=== PATIENT | male | born 1970 | race African-American/Black ===

== ENCOUNTER 2020-06-19 21:12 | Emergency (ER) | payer SELFPAY ==
[~2020-06-19] VITALS: Ht 172.7 cm; Wt 132.1 kg
--- NOTE | 2020-06-19 21:27 | RAD ---
Exam: CT head INDICATION: Slurred speech, vision changes TECHNIQUE: Sequential axial images through the head were obtained without the administration of IV co ntrast. Comparisons: None FINDINGS: No focal parenchymal lesion or hemorrhage is identified. There is no midline shift or sulcal effaceme nt. No acute vascular territory infarction is identified. Lou-white distinction is preserved. The ventricular system is within normal limits without compression hydrocephalus. The basal cisterns are well maintained. The visualized portions of the paranasal sinuses and mastoid air cells are well-pneumatized. No acute fractures. IMPRESSION: No acute intracranial abnormality. Exposure: One or more of the following in the visualized dose reduction techniques were utilized for this examination: 1. Automated exposure control 2. Adjustment of the MA and/or KV according to patient size Use of iterative of reconstructive technique FOR INTERNAL CODING PURPOSES Critical result: Findings discussed with Condra at 06/19/2020 9:23 PM. RESULT CODE: (C) Electronically signed by: Héctor Caruso MD (06/19/2020 9:24 PM) [facility]
[2020-06-19] MEDS ORDERED: IOHEXOL 350 MG/ML 100 ML VIAL. IV ONE (21:45)
[2020-06-19] MEDS ORDERED: CONTRAST GIVEN. MC PRN (22:00)
--- NOTE | 2020-06-19 22:01 | PHYS DOC ---
Adult General Chief Complaint Chief Complaint: NEURO SYMPTOMS/DEFICITS HPI HPI Patient is a 50-year-old male with a past medical history significant for diabetes and hypertension who presents to the emergency department with a chief complaint of blurry vision, and slurred speech. States that he got home from work just after 3 PM and noticed the symptoms began just after getting home. States that it began initially with blurry vision then the right-sided facial droop and slurred speech then right-sided motor weakness. Denies any recent travel, illnesses, fevers, headache, trouble swallowing, chest pain, shortness of breath, abdominal pain, nausea, vomiting, dysuria, diarrhea or hematuria. Denies history of heart attack or stroke. Review of Systems Review of Systems Review of systems otherwise unremarkable except noted in HPI. Current Medications Current Medications Current Medications Medications (Trade) Dose Ordered Sig/Belia Start Time Stop Time Status Last Admin Dose Admin Iohexol (Omnipaque 350 Mg/ml) 100 ml 1X ONCE 06/19/20 21:45 06/19/20 21:46 UNV Allergies Allergies Allergies Coded Allergies Type Severity Reaction Last Updated Verified No Known Drug Allergies 06/19/20 No Physical Exam Physical Exam Constitutional: Well developed, well nourished, no acute distress, non-toxic appearance. [] HENT: Normocephalic, atraumatic, bilateral external ears normal, oropharynx moist, no oral exudates, nose normal. [] Eyes: Patient with bilateral conjunctivitis and chemosis Neck: Normal range of motion, no tenderness, supple, no stridor. [] Cardiovascular:Heart rate regular rhythm, no murmur [] Lungs & Thorax: Bilateral breath sounds clear to auscultation [] Abdomen: Bowel sounds normal, soft, no tenderness, no masses, no pulsatile masses. [] Skin: Warm, dry, no erythema, no rash. [] Back: No tenderness, no CVA tenderness. [] Extremities: No tenderness, no cyanosis, no clubbing, ROM intact, no edema. [] Neurologic: GCS of 15. NIH of 11. Able to move left side without issue. Right-sided facial droop with slurred speech, right upper and lower extremities with weakness 3 out of 5, [id number] and [id number] deficiency on right Psychologic: Affect normal, judgement normal, mood normal. [] Current Patient Data Lab Results Laboratory Tests Test 06/19/20 21:35 Glucose (Fingerstick) 287 mg/dL (70-99) H EKG EKG [] Radiology/Procedures Radiology/Procedures []xam: CT head INDICATION: Slurred speech, vision changes TECHNIQUE: Sequential axial images through the head were obtained without the administration of IV contrast. Comparisons: None FINDINGS: No focal parenchymal lesion or hemorrhage is identified. There is no midline shift or sulcal effacement. No acute vascular territory infarction is identified. Olu-white distinction is preserved. The ventricular system is within normal limits without compression hydrocephalus. The basal cisterns are well maintained. The visualized portions of the paranasal sinuses and mastoid air cells are well- pneumatized. No acute fractures. IMPRESSION: No acute intracranial abnormality. CTA NECK: Visualized portions of thoracic aorta are unremarkable. 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 Right common carotid artery is patent without evidence of stenosis, occlusion or aneurysm. Minimal plaque at the origin of the right internal carotid artery without significant stenosis. Left common carotid artery is patent without evidence of stenosis, occlusion or aneurysm. Mild plaque at the origin of the left internal carotid artery without significant stenosis. Right vertebral artery is patent to the basilar confluence without evidence of stenosis, occlusion or aneurysm. Left vertebral artery is patent to basilar confluence without evidence of stenosis, occlusion or aneurysm. Visualized paraspinal soft tissues are unremarkable. CTA head: Intracranial segments of the right internal carotid artery is patent without evidence of stenosis, occlusion or aneurysm. Right MCA is patent. Right MITCHEL is patent. Intracranial segments of the left internal carotid artery is patent without evidence of stenosis, occlusion or aneurysm. Left MCA is patent. Left MITCHLE is patent. Basilar artery is patent without evidence of stenosis, occlusion or aneurysm. heel former are patent bilaterally. IMPRESSION: 1. No large vessel occlusion. 2. Mild plaque at the origin of the internal carotid arteries bilaterally wit hout significant stenosis. Heart Score C/O Chest Pain: No Risk Factors: Risk Factors: DM, Current or recent (<one month) smoker, HTN, HLP, family history of CAD, obesity. Risk Scores: Risk Factors: DM, Current or recent (<one month) smoker, HTN, HLP, family history of CAD, obesity. Course & Med Decision Making Course & Med Decision Making Patient is a 50-year-old male who presents with a chief complaint of blurry vision, slurred speech and right-sided weakness that started sometime between 3 PM and 4 PM this afternoon after getting off work Vital signs not concerning. Physical exam noted above. NIH of 11. CT of the head and CTA of the head and neck with no acute findings. Laboratory analysis not concerning. Blood gas not concerning. Urinalysis with proteinuria. Although patient's laboratory analysis, EKG and imaging not concerning, patient's clinical presentation suggestive of stroke given right-sided facial droop, slurred speech and right-sided weakness. Discussed all findings with patient and recommended transfer to [facility] for continued neurologic evaluation and treatment. Patient grateful, verbalized understanding and agreed with plan of discharge. [] Dragon Disclaimer Dragon Disclaimer This electronic medical record was generated, in whole or in part, using a voice recognition dictation system. Departure Departure: Impression: Primary Impression: Slurred speech Additional Impression: Hemiparesis Disposition: 02 DC/TRF OTHER SHORT TERM HOS Condition: STABLE Problem Qualifiers GUEVARA LUKE MD Jun 19, 2020 22:01
[2020-06-19 22:21] LABS: BASO % 1 % (0-3); EOS # 0.1 x10^3/uL (0.0-0.7); EOS % 2 % (0-3); HEMATOCRIT 39.3 % (39.0-53.0); HEMOGLOBIN 12.7 g/dL (13.0-17.5); LYMPH # 2.6 x10^3/uL (1.0-4.8); LYMPH % 50 % (24-48); MEAN CORPUSCULAR HEMOGLOBIN 24 pg (25-35); MEAN CORPUSCULAR HGB CONC 32 g/dL (31-37); MEAN CORPUSCULAR VOLUME 75 fL (79-100); MONO # 0.4 x10^3/uL (0.0-1.1); MONO % 7 % (0-9); NEUT # 2.2 x10^3uL (1.8-7.7); NEUT % 41 % (31-73); PLATELET COUNT 183 x10^3/uL (140-400); RED BLOOD COUNT 5.24 x10^6/uL (4.30-5.70); RED CELL DISTRIBUTION WIDTH 13.9 % (11.5-14.5); WHITE BLOOD COUNT 5.3 x10^3/uL (4.0-11.0)
[2020-06-19 22:27] LABS: CALCIUM 8.4 mg/dL (8.5-10.1); CREATININE 1.1 mg/dL (0.7-1.3); GFR 85.4; POTASSIUM 3.7 mmol/L (3.5-5.1)
[2020-06-19 22:33] LABS: ALBUMIN 3.7 g/dL (3.4-5.0); ALBUMIN/GLOBULIN RATIO 1.1 (1.0-1.7); MAGNESIUM 1.8 mg/dL (1.8-2.4); TOTAL BILIRUBIN 0.3 mg/dL (0.2-1.0)
[2020-06-19 22:36] LABS: BILIRUBIN,URINE NEG (NEG); CLARITY,URINE CLEAR; COLOR,URINE YELLOW; GLUCOSE,URINE >=1000 mg/dL (NEG)
[2020-06-19 22:37] LABS: BACTERIA,URINE 0 /HPF (0-FEW); NITRITE,URINE NEG (NEG); UROBILINOGEN,URINE 0.2 mg/dL (0.2 mg/dL); WBC,URINE OCC /HPF (0-4)
--- NOTE | 2020-06-19 22:39 | RAD ---
Exam: CTA head and neck INDICATION: Slurred speech, vision changes TECHNIQUE: Sequential axial images through the head and neck obtained following the administration 10 0 mL of Omni 350 IV contrast. Sagittal and coronal reformatted images were reconstructed from the axi al data and reviewed. 3-D reformatted images were reconstructed from the axial data and reviewed. Comparisons: CT head without contrast same day FINDINGS: CTA NECK: Visualized portions of thoracic aorta are unremarkable. Two-vessel aortic arch configuration common o rigin of the brachycephalic left common carotid arteries. Right common carotid artery is patent without evidence of stenosis, occlusion or aneurysm. Minimal pl aque at the origin of the right internal carotid artery without significant stenosis. Left common carotid artery is patent without evidence of stenosis, occlusion or aneurysm. Mild plaque at the origin of the left internal carotid artery without significant stenosis. Right vertebral artery is patent to the basilar confluence without evidence of stenosis, occlusion or aneurysm. Left vertebral artery is patent to basilar confluence without evidence of stenosis, occlusion or aneu rysm. Visualized paraspinal soft tissues are unremarkable. CTA head: Intracranial segments of the right internal carotid artery is patent without evidence of stenosis, oc clusion or aneurysm. Right MCA is patent. Right MITCHEL is patent. Intracranial segments of the left internal carotid artery is patent without evidence of stenosis, occ lusion or aneurysm. Left MCA is patent. Left MITCHEL is patent. Basilar artery is patent without evidence of stenosis, occlusion or aneurysm. networks software consultant are patent bilater ally. IMPRESSION: 1. No large vessel occlusion. 2. Mild plaque at the origin of the internal carotid arteries bilaterally without significant stenos is. Exposure: One or more of the following in the visualized dose reduction techniques were utilized for this examination: 1. Automated exposure control 2. Adjustment of the MA and/or KV according to patient size 3. Use of iterative of reconstructive technique Electronically signed by: Héctor Caurso MD (06/19/2020 10:37 PM) [facility]
--- NOTE | 2020-06-20 00:04 | EKG ---
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
[2020-06-20 01:15] VITALS: BP 133/57
== END 2020-06-20 01:45 | disposition short-term general hospital (02) ==
LOC: ER 21:12
DX: G81.91 Hemiplegia, unspecified affecting right dominant side (principal); R47.81 Slurred speech; R29.810 Facial weakness
CPT/HCPCS: 36415; 70450; 70496; 70498; 80053; 81001; 82803; 82947; 83735; 84484; 85025; 93005; 99285; Q9967